=== PATIENT | female | born 1985 | race Caucasian/White ===

== ENCOUNTER 2018-12-03 15:39 | Emergency (ER) | payer SELFPAY ==
[~2018-12-03] VITALS: Ht 170.2 cm; Wt 63.2 kg
[2018-12-03 15:53] VITALS: BP 111/64
--- NOTE | 2018-12-03 15:57 | NUR ---
PT AMBULATED TO LOBBY W/ VSS.
--- NOTE | 2018-12-03 16:51 | NUR ---
Pt taken to bed 10.
--- NOTE | 2018-12-03 17:07 | NUR ---
33/F C/O VAGINAL DISCHARGE. PT STATES SHE CANNOT REMEMBER TAKING OUT TAMPON, REPORTS WHITE DISCHARGE WITH ODOR PRESENT. PT THINKS SHE MIGHT ALSO HAVE AN STD. PT REPORTS UNPROTECTED SEX WITH 2 DIFFERENT PARTNERS.
--- NOTE | 2018-12-03 18:01 | NUR ---
Christy christine in ED - 12/03/18 at 1802 by [email or web address] PELVIC EXA. VAGINAL SWAB SPECIMEN SENT TO LAB.
--- NOTE | 2018-12-03 18:02 | NUR ---
PELVIC EXAM. VAGINAL SWAB SPECIMEN SENT TO LAB.
--- NOTE | 2018-12-03 19:08 | NUR ---
Pt report given to RAY LORA. Transfer of care at this time.
[2018-12-03] MEDS ORDERED: cefTRIAXone 250 MG in LIDOCAINE MPF 1% - 5 mL VIAL 0.9 ML IM ONE (19:15)
[2018-12-03] MEDS ORDERED: AZITHROMYCIN 250 MG TAB PO ONE (19:15)
[2018-12-03 19:19] LABS: APPEARANCE,URINE CLEAR (CLEAR); BILIRUBIN,URINE NEGATIVE (NEGATIVE); BLOOD, URINE NEGATIVE (NEGATIVE); COLOR,URINE YELLOW (YELLOW); LEUKOCYTE ESTERASE ,URINE NEGATIVE (NEGATIVE); NITRITE, URINE NEGATIVE (NEGATIVE); PH,URINE 7.5 (5.0-9.0); UGLUCOSE NEGATIVE (NEGATIVE)
--- NOTE | 2018-12-03 19:25 | NUR ---
DISCHARGE PAPERS GIVEN TO PT. RX OF MEDTRONIDAZOLE GIVEN. SIDE EFFECTS EXPLAINED. INTRUCTED TO STAY FOR 15 MIN AFTER MEDICATION ADDMINISTRATION. PT STATES SHE CANNOT WAIT. INSTRUCTED TO F/U WITH PCP AND WHEN TO RETURN TO ER. PT VERBALLIZED UNDERSTANDING OF DC INSTRUCTIONS. ALL QUESTIONS ANSWERED.
[2018-12-03 19:30] VITALS: BP 118/69
[2018-12-05 06:07] LABS: CHLAMYDIA TRACHOMATIS AMP DNA Negative (Negative)
== END 2018-12-03 19:25 | disposition home or self-care (01) ==
LOC: MED 15:39
DX: N76.0 Acute vaginitis (principal); B96.89 Other specified bacterial agents as the cause of diseases classified elsewhere; Z11.3 Encounter for screening for infections with a predominantly sexual mode of transmission
CPT/HCPCS: 36415; 81003; 81025; 87070; 87205; 87210; 87491; 96372; 99283; J0696; J2001

== ENCOUNTER 2021-03-07 01:13 | Emergency (ER) | payer MEDICAID ==
[~2021-03-07] VITALS: Ht 170.2 cm; Wt 59.0 kg
[2021-03-07 01:50] VITALS: BP 121/79
--- NOTE | 2021-03-07 01:53 | NUR ---
TO LOBBY A/W BED AMBULATORY
--- NOTE | 2021-03-07 02:38 | NUR ---
PT AMBULATED TO BED 12
[2021-03-07] MEDS ORDERED: CEPH-588 PO (03:07)
[2021-03-07] MEDS ORDERED: SULF-59 PO (03:08)
[2021-03-07 03:25] VITALS: BP 121/79
--- NOTE | 2021-03-07 03:25 | NUR ---
Patient discharged with v/s stable. Written and verbal after care instructions given and explained. Patient alert, oriented and verbalized understanding of instructions. Ambulatory with steady gait. All questions addressed prior to discharge. ID band removed. Patient advised to follow up with PMD. Rx of KEFLEX & BACTRIM given. Patient educated on indication of medication including possible reaction and side effects. Opportunity to ask questions provided and answered.
== END 2021-03-07 03:25 | disposition home or self-care (01) ==
LOC: MED 01:13
DX: L02.412 Cutaneous abscess of left axilla (principal); L02.415 Cutaneous abscess of right lower limb; L02.31 Cutaneous abscess of buttock
CPT/HCPCS: 99283

== ENCOUNTER 2021-07-08 00:43 | Emergency (ER) | payer SELFPAY ==
[~2021-07-08] VITALS: Ht 170.2 cm; Wt 57.7 kg
[~2021-07-08 00:43] MED LIST: CEPH-588 PO; SULF-59 PO
[2021-07-08 00:53] VITALS: BP 115/70
--- NOTE | 2021-07-08 01:01 | NUR ---
PT TAKEN TO ER BED 08
--- NOTE | 2021-07-08 01:15 | NUR ---
36 YO F BIB SELF WITH WHITE VAGINAL DISCHARGE X2WKS. REPORTS ODOR. DENIES ITCHING. BURNING WITH URINATION AT TIMES. REPORTS INCREASED FREQUENCY AND URGENCY. DENIES HX, RX AND ALLERGIES
--- NOTE | 2021-07-08 02:00 | NUR ---
refusing pelvic exam
[2021-07-08] MEDS ORDERED: CIPR500T4 PO (02:09)
[2021-07-08 02:15] VITALS: BP 115/70
== END 2021-07-08 02:15 | disposition home or self-care (01) ==
LOC: MED 00:43
DX: N39.0 Urinary tract infection, site not specified (principal); F17.210 Nicotine dependence, cigarettes, uncomplicated; Z79.2 Long term (current) use of antibiotics
CPT/HCPCS: 81002; 81025; 99283

== ENCOUNTER 2023-08-12 16:16 | Emergency (ER) | payer SELFPAY ==
[~2023-08-12] VITALS: Ht 170.2 cm; Wt 53.5 kg
[~2023-08-12 16:16] MED LIST changes: +CIPR500T4 PO
[2023-08-12 16:29] VITALS: BP 128/70; PULSE 98; RESP 18; TEMP 97.5; O2SAT 99
[2023-08-12] MEDS: FLUORESCEIN OPTH STRIP 1 MG OP ONE (19:08)
[2023-08-12] MEDS: TETRACAINE HCL/PF 0.5% OPTH 4 ML BTL OP ONE (19:09)
== END 2023-08-12 19:42 | disposition home or self-care (01) ==
LOC: MED 16:16
DX: H53.9 Unspecified visual disturbance (principal); R03.0 Elevated blood-pressure reading, without diagnosis of hypertension; Z79.899 Other long term (current) drug therapy
CPT/HCPCS: 99284